=== PATIENT | male | born 1970 | race Hispanic/Latino ===

== ENCOUNTER 2019-02-20 06:22 | Day surgery (SDC) | payer MEDICARE ==
[~2019-02-20 06:22] MED LIST: LETR2.5T6 PO; MONT10TA24 PO; SODIUM CHLORIDE 0.9% 1000ML 1,000 ML IV ONE
[2019-02-20] MEDS ORDERED: LIDOCAINE HCL 1% 20 ML VIAL ONE (06:44)
[2019-02-20] MEDS ORDERED: PROPOFOL 10 MG/ML 20ML VIAL IV ONE (06:44)
--- NOTE | 2019-02-20 07:30 | NUR ---
NURSING RECD PT FROM HOME VIA MOTORIZED CHAIR AWAKE AND ALERT, UPON ASSESSMENT NOTICE PT WAS W AUDIBLE WHEEZING. ON AUSCULTATION PT WITH ABSENT LUNG SOUND TO RT LUNG, AND CLEAR TO LT, PER MOM PT HAS BEEN HAVING INCREASE ABDOMINAL DISTENTION WITH CONSTIPATION FOR SEVERAL DAYS. PT IS PREPPED FOR FOR COLONOSCOPY PER MOM PT WAS ABLE TO TOLERATE [place] OF PREP AND AT COMPLETION OF PREP STOOL WAS WATERY AND YELLOW. MOM STATES PT STARTED WITH DIFFICULTY BREATHING DURING PREP BUT HAS BEEN HAVING TROUBLE BREATHING FOR SEVERAL DAYS AND ALSO HAVING COUGH. REPORTED FINDINGS TO [facility] AND ORDERS RECD FOR DUO-NEB. ORDERS RECD TO CANCEL PROCEDURE AND TRANSFER PT TO ER FOR FURTHER EVAL OF RESP STATUS. AFTER COMPLETING NEB TX PT WAS TRANSFERRED VIA STRETCH TO ER WITH O2/NC AT 3/L, HE IS AWAKE AND ALERT TALKATIVE. REPORT TO CHRALES NINO NURSE. MOTHER WAS GIVEN EXPLANATION FOR PROC BEING CXED AND SHE VERBALIZED UNDERSTANDING. Addendum: 02/20/19 at 0832 by BULL RENO RN Amended: Links added.
[2019-02-20] MEDS ORDERED: IPRATROPIUM/ALBUTEROL SULFATE 3 ML SOLUTION IH ONE (07:55)
[2019-02-20 07:57] VITALS: BP 128/95
== END 2019-02-20 08:19 | disposition home or self-care (01) ==
LOC: ENDO 06:22
PROVIDERS: ATTEND Internal Medicine
DX: R19.4 Change in bowel habit (principal); R10.13 Epigastric pain; Z79.899 Other long term (current) drug therapy; J30.81 Allergic rhinitis due to animal (cat) (dog) hair and dander; Z85.3 Personal history of malignant neoplasm of breast; Z53.8 Procedure and treatment not carried out for other reasons
CPT/HCPCS: 71045; 94640; J2704; J7030

== ENCOUNTER → 2019-05-16 | Outpatient (CLI) | payer MEDICARE, OTHER ==
[~2019-05-16] MED LIST changes: -LETR2.5T6 PO; +LETR2.5T7 PO; +MAGOX PO; +METO10TA41 PO; -MONT10TA24 PO; +MONT10TA26 PO; -SODIUM CHLORIDE 0.9% 1000ML 1,000 ML IV ONE; +TAMS-1 PO; +TRAM50TA4 PO
== END | disposition home or self-care (01) ==
LOC: RAH 10:42
PROVIDERS: ATTEND Internal Medicine Cardiovascular Disease
DX: Z13.6 Encounter for screening for cardiovascular disorders (principal)
CPT/HCPCS: 75571

== ENCOUNTER 2019-08-30 13:43 | Observation (INO) | payer MEDICARE ==
[2019-08-30 15:06] LABS: EOSINOPHILS % (AUTO) 1.2 % (0.0-8.0); HEMATOCRIT 39.5 % (42-54); LYMPHOCYTES % (AUTO) 38.6 % (21.0-51.0); MEAN CORPUSCULAR HEMOGLOBIN 32.1 pg (27.0-33.0); MEAN CORPUSCULAR HGB CONC 34.4 g/dL (32.0-36.0); MEAN CORPUSCULAR VOLUME 93.2 fL (79-99); MONOCYTES % (AUTO) 7.2 % (3.0-13.0); NEUTROPHILS % (AUTO) 50.7 % (40.0-77.0); PLATELET COUNT (AUTO) 225 K/uL (130-400); RED BLOOD CELL COUNT(AUTO) 4.24 MIL/uL (4.50-6.20); RED CELL DISTRIBUTION WIDTH 23.9 % (11.0-15.5); WHITE BLOOD COUNT (AUTO) 3.5 K/uL (4.8-10.8)
[2019-08-30 15:17] LABS: CREATININE 0.6 mg/dL (0.5-1.5); POTASSIUM 4.1 mmol/L (3.5-5.1)
[2019-08-30 15:22] LABS: ALBUMIN 3.5 g/dL (3.5-5.0); BILIRUBIN,TOTAL 0.3 mg/dL (0.2-1.0); TOTAL PROTEIN, SERUM 7.7 g/dL (6.0-8.3)
[2019-08-30] MEDS ORDERED: ASPIRIN 325 MG TABLET ONE (15:27)
[2019-08-30] MEDS ORDERED: IOHEXOL-350 50ML VIAL IV ONE (15:50)
[2019-08-30] MEDS ORDERED: METHYLPREDNISOLONE SOD SUCC 125MG/2ML VIAL IVP SCH (17:30)
[2019-08-30] MEDS ORDERED: IPRATROPIUM/ALBUTEROL SULFATE 3 ML SOLUTION IH SCH (18:00)
== END 2019-08-30 18:16 | disposition left against medical advice (07) ==
LOC: EDH 13:43 → EDHIP 15:57
PROVIDERS: ADMIT Internal Medicine Hematology & Oncology; ATTEND Internal Medicine Hematology & Oncology
DX: J91.0 Malignant pleural effusion (principal); C50.929 Malignant neoplasm of unspecified site of unspecified male breast; C79.9 Secondary malignant neoplasm of unspecified site; G11.9 Hereditary ataxia, unspecified; J45.909 Unspecified asthma, uncomplicated; Z90.10 Acquired absence of unspecified breast and nipple; Z95.828 Presence of other vascular implants and grafts; Z92.21 Personal history of antineoplastic chemotherapy; Z79.899 Other long term (current) drug therapy
CPT/HCPCS: 36415; 71270; 80053; 85025; 99285; G0378; Q9967